=== PATIENT | female | born 1970 | race Hispanic/Latino ===

== ENCOUNTER 2019-01-06 22:58 | Emergency (ER) | payer SELFPAY ==
[~2019-01-06] VITALS: Ht 149.9 cm; Wt 68.0 kg
[2019-01-06] MEDS ORDERED: ACETAMINOPHEN 325 MG TAB PO PRN (23:15)
[2019-01-07 00:23] VITALS: BP 113/73
== END 2019-01-07 00:35 | disposition home or self-care (01) ==
LOC: ER 22:58
DX: J02.0 Streptococcal pharyngitis (principal)
CPT/HCPCS: 83518; 87070; 99284